=== PATIENT | male | born 1960 ===

== ENCOUNTER 2025-02-15 06:48 | Day surgery (SDC) | payer BC, SELFPAY ==
[2025-02-07 08:07] VITALS: BMI 29.6
[2025-02-07 08:33] LABS: Hematocrit 56.4 % (39.0-52.0); Hemoglobin 18.6 g/dL (13.0-18.0); Mean Corp Hgb Conc. 33.0 g/dL (33.0-37.0); Mean Corpuscular Volume 87.9 fL (80.0-94.0); Nucleated Red Blood Cells % 0 % (-); Platelet Count 216 10^3/uL (130-400); Red Cell Dist. Width 13.3 % (11.5-14.5)
[2025-02-07 08:38] LABS: ALT (SGPT) 23 U/L (0-50); AST (SGOT) 19 U/L (17-59); Albumin 4.2 g/dl (3.5-5.0); Alkaline Phosphatase 112 U/L (38-126); Blood Urea Nitrogen 27 mg/dl (9-20); Calcium 9.5 mg/dl (8.4-10.2); Carbon Dioxide 26 mmol/L (22-30); Chloride 103 mmol/L (98-107); Estimated Creatinine Clearance 54 ml/min; Glucose 303 mg/dl (70-99); Potassium 4.6 mmol/L (3.5-5.1); Sodium 134 mmol/L (135-145); Total Protein 6.9 g/dl (6.3-8.2); eGFR 55.43
[2025-02-15 07:22] VITALS: BMI 28.3
[2025-02-15 07:23] VITALS: BP 116/69
[2025-02-15] MEDS: NSS 268 ML IV (08:03)
[2025-02-15 08:05] LABS: Glucose - Point of Care 239 mg/dl (70-99)
--- NOTE | 2025-02-15 17:40 | ITS.CL.PN ---
Local Delivery Driver - Procedure Note
Procedure
Procedure Note:
CARDIAC CATHETERIZATION REPORT
Date of Procedure: 02/15/2025
Referring: Dr. Jeff Aivles MD
Indication: atypical angina, positive cardiac stress test
PROCEDURE(S)
1. left heart catheterization
2. coronary angiography
ACCESS: 6F right radial artery (closure: radial band)
CATHETERS
1. 6F JR4
2. 6F JL4
MODERATE SEDATION: 25 minutes of moderate sedation was utilized. An independent medical office professional instructor was present to assist with and help manage the patient's level of consciousness and physiologic status.
HEMODYNAMIC DATA
LV 100/8 (EDP 13) mmHg
AO 98/66 (mean 80) mmHg
CORONARY ANGIOGRAPHY
Dominance: Right
LM: Large, normal
LAD: Large vessel giving rise to a very large D1 and small D2. There is an ulcerated appearing but likely nonobstructive approximately 40% stenosis in the proximal LAD before the takeoff of the large diagonal. There is a 40% stenosis in the mid LAD
just after the S1 with mild poststenotic dilation distally. There is a total occlusion of the LAD after the D2 with a faint anterograde microchannel and retrograde filling from left to left apical collaterals.
LCx: Large vessel giving rise to a small OM1, large OM2, small OM3, and large branching LPL. There is a total occlusion of the OM1 with a faint antegrade microchannel and retrograde filling from left to left collaterals.
RCA: Large vessel giving rise to a moderate caliber RPDA and small RPL branch. There is mild diffuse disease.
RADIATION: dose 343 mGy; DAP 19 Gy*cm2; fluoroscopy time 1.9 min
CONCLUSIONS
1. Two vessel obstructive coronary artery disease in a right dominant system with CROWD CONTROLLER of the distal LAD and CROWD CONTROLLER of the large OM1.
2. Normal LV filling pressure and no aortic stenosis.
RECOMMENDATIONS:
1. Recommend initial medical therapy with anti-anginal medication. Will start metoprolol today and recommend addition of second anti-anginal agent as tolerated on close outpatient follow up. If patient's shortness of breath is not improved with
medication, PCI of the distal LAD+/-OM1 would be reasonable. Given presence of antegrade microchannels in both vessels and no severe calcification, this could likely be achieved without dedicated CROWD CONTROLLER PCI techniques. Surgical revascularization is
less desirable given his anatomy as the REESE would fill only the distal and apical LAD. Initial revascularization with PCI (if needed for symptoms) would still leave open the option for a CABG with REESE-LAD down the line if disease were to progress.
2. Needs aggressive risk factor modification including lipid lowering medication to achieve LDL<55, optimal glycemic and blood pressure control, and smoking cessation.
Copy to: Dr. Jeff Aviles MD (kitchen worker); Dr. Kash Lira MD (PCP)
Signed: Peña Rose MD, PhD
== END 2025-02-15 15:20 | disposition home or self-care (01) ==
LOC: CATH 06:48
PROVIDERS: ATTENDING PHYSICIAN Student in an Organized Health Care Education/Training Program; FAMILY PHYSICIAN Internal Medicine; OTHER PHYSICIAN Internal Medicine Cardiovascular Disease
DX: I25.119 Atherosclerotic heart disease of native coronary artery with unspecified angina pectoris (principal); I12.9 Hypertensive chronic kidney disease with stage 1 through stage 4 chronic kidney disease, or unspecified chronic kidney disease; E11.22 Type 2 diabetes mellitus with diabetic chronic kidney disease; E66.9 Obesity, unspecified; E78.5 Hyperlipidemia, unspecified; G47.33 Obstructive sleep apnea (adult) (pediatric); R91.8 Other nonspecific abnormal finding of lung field; H54.61 Unqualified visual loss, right eye, normal vision left eye; H40.9 Unspecified glaucoma; K21.9 Gastro-esophageal reflux disease without esophagitis; F32.A Depression, unspecified; F41.9 Anxiety disorder, unspecified; G47.419 Narcolepsy without cataplexy; Z98.890 Other specified postprocedural states; Z90.49 Acquired absence of other specified parts of digestive tract; Z79.899 Other long term (current) drug therapy; Z79.84 Long term (current) use of oral hypoglycemic drugs; F17.210 Nicotine dependence, cigarettes, uncomplicated; E11.65 Type 2 diabetes mellitus with hyperglycemia; E11.40 Type 2 diabetes mellitus with diabetic neuropathy, unspecified; N18.30 Chronic kidney disease, stage 3 unspecified; Z79.4 Long term (current) use of insulin
CPT/HCPCS: 99152; 99153; 36415; 80053; 82962; 85025; 93005; 93458; C1769; C1894; Q9967